=== PATIENT | male | born 1955 | race American Indian/Alaskan Native ===

== ENCOUNTER 2018-07-24 17:08 | Emergency (ER) | payer SELFPAY ==
[2018-07-24 17:54] VITALS: BMI 22.4
[2018-07-24 18:59] LABS: BASO % 0.5 % (0.0-2.0); EOS % 0.5 % (0.0-4.0); HEMOGLOBIN 11.3 g/dL (12.0-18.0); LYMPH # 1.9 K/uL (1.0-4.3); LYMPH % 21.8 % (20.0-40.0); MEAN CELL VOLUME 92.2 fL (80.0-94.0); MEAN CORPUSCULAR HEMOGLOBIN 30.4 pg (27.0-31.0); MONO # 0.6 K/uL (0.0-0.8); MONO % 6.9 % (0.0-10.0); NEUT % 70.3 % (50.0-75.0); NRBC % 0.2 % (0.0-2.0); RBC 3.71 Mil/uL (4.40-5.90); RED CELL DISTRIBUTION WIDTH 14.8 % (11.5-14.5); WHITE BLOOD COUNT 8.6 K/uL (4.8-10.8)
[2018-07-24] MEDS ORDERED: Sodium Chloride 0.9% 1,000 ML IV ONE (19:01)
[2018-07-24 19:12] LABS: ALB/GLOB RATIO 0.7 (1.0-2.1); ALBUMIN 3.5 g/dL (3.5-5.0); ALT/SGPT 117 U/L (21-72); AST/SGOT 261 U/L (17-59); BLOOD UREA NITROGEN 14 mg/dL (9-20); CALCIUM 8.7 mg/dl (8.6-10.4); GFR NON-AFRICAN AMERICAN > 60; LIPASE 59 U/L (23-300)
[2018-07-24 19:26] LABS: VENOUS BLOOD GAS BASE EXCESS -3.9 mmol/L (0.0-2.0); VENOUS BLOOD GAS PCO2 53 mmHg (40-60); VENOUS BLOOD GAS PO2 36 mm/Hg (30-55); VENOUS BLOOD PH 7.26 (7.32-7.43)
[2018-07-24 19:27] LABS: B-TYPE NATRIURETIC PEPTIDE 568 pg/mL (0-900); CK-MB 3.68 ng/mL (0.0-3.38)
--- NOTE | 2018-07-24 19:32 | C.PDOC ---
History Of Present Illness Patient with Hx of seizures has not been taking any meds, still drinks, brought in after having seizure in a liquor store. Patient is aao now. Denies fever, chills, nausea, or vomiting. Time Seen by Provider: 07/24/18 19:28 Chief Complaint (Nursing): Seizure History Per: Patient History/Exam Limitations: no limitations Recent Seizure Activity Began: Just Before Arrival Number Of Seizures: One Length Of Seizures (Duration): Unknown Quality Of Seizure: Generalized Post-ictal Period: No Severity: Moderate Pain Scale Rating Of: 4 Recent travel outside of the [place]: No Past Medical History Reviewed: Historical Data, Nursing Documentation, Vital Signs Vital Signs: Last Vital Signs Temp 101 F H 07/24/18 18:43 Pulse 118 H 07/24/18 18:43 Resp 16 07/24/18 18:43 BP 146/89 07/24/18 18:43 Pulse Ox 97 07/24/18 18:43 - Medical History PMH: Seizures Family History: States: Unknown Family Hx - Social History Hx Alcohol Use: Yes Hx Substance Use: No (pt denies) - Immunization History Hx Tetanus Toxoid Vaccination: No Hx Influenza Vaccination: No Hx Pneumococcal Vaccination: No Review Of Systems Constitutional: Negative for: Fever, Chills Cardiovascular: Negative for: Chest Pain, Palpitations Respiratory: Negative for: Cough, Shortness of Breath Gastrointestinal: Negative for: Nausea, Vomiting Neurological: Positive for: Seizures. Negative for: Weakness, Numbness Physical Exam - Physical Exam Appears: Non-toxic, Other (No sign of incontinence) Skin: Warm, Dry Head: Normacephalic Eye(s): bilateral: Normal Inspection, PERRL, EOMI Oral Mucosa: Moist Neck: Trachea Midline, Supple Chest: Symmetrical, No Tenderness Cardiovascular: Rhythm Regular Respiratory: No Rales, No Rhonchi, No Wheezing Gastrointestinal/Abdominal: Soft, No Tenderness Neurological/Psych: Oriented x3 ED Course And Treatment - Laboratory Results Result Diagrams: 07/24/18 18:56 07/24/18 18:56 Lab Results: pO2 36 mm/Hg (30-55) 07/24/18 19:23 VBG pH 7.26 (7.32-7.43) L 07/24/18 19:23 VBG pCO2 53 mmHg (40-60) 07/24/18 19:23 VBG HCO3 20.8 mmol/L 07/24/18 19:23 VBG Total CO2 25.4 mmol/L (22-28) 07/24/18 19:23 VBG O2 Sat (Calc) 62.4 % (40-65) 07/24/18 19:23 VBG Base Excess -3.9 mmol/L (0.0-2.0) L 07/24/18 19:23 VBG Potassium 4.0 mmol/L (3.6-5.2) 07/24/18 19:23 Sodium 136.0 mmol/l (132-148) 07/24/18 19:23 Chloride 104.0 mmol/L (98-107) 07/24/18 19:23 Glucose 117 mg/dl (75-110) H 07/24/18 19:23 Lactate 3.6 mmol/L (0.7-2.1) H 07/24/18 19:23 Troponin I 0.0260 ng/mL (0.00-0.120) 07/24/18 18:56 NT-Pro-B Natriuret Pep 568 pg/mL (0-900) 07/24/18 18:56 Total Bilirubin 2.0 mg/dL (0.2-1.3) H 07/24/18 18:56 AST 261 U/L (17-59) H 07/24/18 18:56 ALT 117 U/L (21-72) H 07/24/18 18:56 Alkaline Phosphatase 208 U/L (38-126) H 07/24/18 18:56 Total Protein 8.8 g/dL (6.3-8.3) H 07/24/18 18:56 Albumin 3.5 g/dL (3.5-5.0) 07/24/18 18:56 Globulin 5.3 gm/dL (2.2-3.9) H 07/24/18 18:56 Albumin/Globulin Ratio 0.7 (1.0-2.1) L 07/24/18 18:56 Lipase 59 U/L (23-300) 07/24/18 18:56 ECG: Interpreted By Me, Viewed By Me ECG Rhythm: Sinus Rhythm, Nonspecific Changes O2 Sat by Pulse Oximetry: 97 (Room air) Pulse Ox Interpretation: Normal - Radiology CXR: Interpreted by Me, Viewed By Me CXR Interpretation: No: Infiltrates, Fracture, Pnemothorax Progress Note: Blood work, CT head, and flu swab ordered. IV fluids and tylenol administered. no seizure activity noted. Patient wants to go home Reevaluation Time: 21:13 Reassessment Condition: Improved Medical Decision Making Medical Decision Making: Upon provider reevaluation patient is feeling better, is medically stable, and requires no further treatment in the ED at this time. Patient will be discharged home . Counseling was provided and all questions were answered regarding diagnosis and need for follow up with the referred clinic. There is agreement to discharge plan. Return if symptoms persist or worsen. Disposition Counseled Patient/Family Regarding: Studies Performed, Diagnosis, Need For Followup - Disposition Referrals: [facility] [Outside] [facility] [Outside] Gavino Medina MD [Staff Provider] - Disposition: HOME/ ROUTINE Disposition Time: 21:02 Condition: FAIR Additional Instructions: Please return if symptoms recur Instructions: Seizures, Adult (DC) Forms: [employer] (Mauritian) - Clinical Impression Clinical Impression: Seizure - Scribe Statement The provider has reviewed the documentation as recorded by the Scribrandy Cuevas All medical record entries made by the Scribe were at my direction and personally dictated by me. I have reviewed the chart and agree that the record accurately reflects my personal performance of the history, physical exam, medical decision making, and the department course for this patient. I have also personally directed, reviewed, and agree with the discharge instructions and disposition.
[2018-07-24 21:22] VITALS: BP 162/98; TEMP 100.2
[2018-07-24 21:30] VITALS: PULSE 108; RESP 16; O2SAT 98
--- NOTE | 2018-07-25 08:34 | CT ---
Date of service: 07/24/2018 PROCEDURE: CT HEAD WITHOUT CONTRAST. HISTORY: seizure COMPARISON: None available. TECHNIQUE: Axial computed tomography images were obtained through the head/brain without intravenous contrast. Radiation dose: Total exam DLP = 1087.47 mGy-cm. This CT exam was performed using one or more of the following dose reduction techniques: Automated exposure control, adjustment of the mA and/or kV according to patient size, and/or use of iterative reconstruction technique. FINDINGS: HEMORRHAGE: No intracranial hemorrhage. BRAIN: No mass effect or edema. Scattered focal lucencies in the subcortical and periventricular white matter suggestive for chronic microvascular ischemic change. Encephalomalacia from likely chronic infarct seen within the anterior left frontal lobe on series 2, image 21. Correlation with MRI may be helpful if clinically indicated. Additional confluent area of low attenuation seen within the anterior limb of the left internal capsule suggestive for chronic ischemic change. Diffuse generalized parenchymal atrophy. Streak artifact in the posterior fossa somewhat limits evaluation. VENTRICLES: Unremarkable. No hydrocephalus. CALVARIUM: Unremarkable. PARANASAL SINUSES: Unremarkable as visualized. No significant inflammatory changes. MASTOID AIR CELLS: Unremarkable as visualized. No inflammatory changes. OTHER FINDINGS: Intracranial arterial calcifications. 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 Additional area of chronic ischemic change in the anterior limb of the left internal capsule. Diffuse generalized parenchymal atrophy. Chronic microvascular ischemic changes. If symptoms persists, consider correlation with MRI. A preliminary report was generated at 8:51 p.m. on 07/24/[address] Rick Weinstein from [email or web address]. This case was placed in the PA review folder.
--- NOTE | 2018-07-25 09:44 | RAD ---
Date of service: 07/24/2018 HISTORY: seizure COMPARISON: None available. TECHNIQUE: 1 view obtained. FINDINGS: LUNGS: Diffuse increased interstitial lung markings. More patchy increased markings at the right lung base. Bilateral hilar prominence. Upper lobe granulomatous changes. PLEURA: No significant pleural effusion identified, no pneumothorax apparent. CARDIOVASCULAR: Aortic atherosclerotic calcification present. Tortuous ectatic aorta. Normal cardiac size. No pulmonary vascular congestion. OSSEOUS STRUCTURES: No significant abnormalities. VISUALIZED UPPER ABDOMEN: Normal. OTHER FINDINGS: None. IMPRESSION: Diffuse increased interstitial lung markings. More patchy increased markings at the right lung base. Bilateral hilar prominence. Upper lobe granulomatous changes.
== END 2018-07-24 21:50 | disposition home or self-care (01) ==
LOC: C.ER 17:08
DX: R56.9 Unspecified convulsions (principal)
CPT/HCPCS: 70450; 71045; 80053; 82803; 82948; 83690; 83880; 84484; 85025; 87804; 99285; G0480; J7030